=== PATIENT | female | born 1930 | race Caucasian/White ===

== ENCOUNTER 2017-12-27 21:23 | Inpatient (IN) | payer OTHER ==
[~2017-12-27] VITALS: Ht 152.4 cm; Wt 45.4 kg
[2017-12-27] MEDS ORDERED: NAMENDA10 MG (21:36)
[2017-12-27] MEDS ORDERED: PLAVIX75 MG (21:36)
[2017-12-27] MEDS ORDERED: SIMVASTATIN10 MG (21:37)
[2017-12-27] MEDS ORDERED: SYNTHROID88 MCG (21:37)
[2017-12-27] MEDS ORDERED: TRAZODONE HCL50 MG (21:38)
[2017-12-27] MEDS ORDERED: FORTAMET500 MG (21:38)
[2018-01-06] MEDS ORDERED: HEARTBURN PREVE20 MG PO (17:41)
[2018-01-06] MEDS ORDERED: LEVOTHYROXINE100 MCG PO (17:41)
[2018-01-06] MEDS ORDERED: SIMVASTATIN20 MG PO (17:41)
[2018-01-06] MEDS ORDERED: PLAVIX75 MG PO (17:41)
[2018-01-06] MEDS ORDERED: NAMENDA10 MG PO (17:41)
[2018-01-06] MEDS ORDERED: NeurRONTin 100mg cap PO (17:41)
[2018-01-06] MEDS ORDERED: CYMBALTA30 MG PO (17:41)
== END 2018-01-06 17:53 | disposition home health service (06) | DRG 389 ==
LOC: ER 21:23 → MEDJ 12-28 13:17 → SEC-K 12-28 13:17 → MEDJ 12-28 15:00
PROC: BW25Y0Z Computerized Tomography (CT Scan) of Chest, Abdomen and Pelvis using Other Contrast, Unenhanced and Enhanced (ICD-10-PCS; principal; 2017-12-28)
PROC: CP1Z1ZZ Planar Nuclear Medicine Imaging of Musculoskeletal System, All using Technetium 99m (Tc-99m) (ICD-10-PCS; 2017-12-29)
PROC: BR29ZZZ Computerized Tomography (CT Scan) of Lumbar Spine (ICD-10-PCS; 2018-01-01)
DX: K56.690 Other partial intestinal obstruction (principal); S32.018A Other fracture of first lumbar vertebra, initial encounter for closed fracture; E11.9 Type 2 diabetes mellitus without complications; E03.8 Other specified hypothyroidism; Z86.73 Personal history of transient ischemic attack (TIA), and cerebral infarction without residual deficits; M16.4 Bilateral post-traumatic osteoarthritis of hip; G72.89 Other specified myopathies; G30.8 Other Alzheimer's disease; F02.80 Dementia in other diseases classified elsewhere, unspecified severity, without behavioral disturbance, psychotic disturbance, mood disturbance, and anxiety; M54.5 Low back pain; Z74.01 Bed confinement status; W18.39XA Other fall on same level, initial encounter; Y93.89 Activity, other specified; Y92.89 Other specified places as the place of occurrence of the external cause; Y99.8 Other external cause status

== ENCOUNTER 2018-03-30 12:42 | Emergency (ER) | payer OTHER ==
[~2018-03-30] VITALS: Ht 152.4 cm; Wt 40.8 kg
[~2018-03-30 12:42] MED LIST: CYMBALTA30 MG PO; FORTAMET500 MG; HEARTBURN PREVE20 MG PO; LEVOTHYROXINE100 MCG PO; NAMENDA10 MG; NAMENDA10 MG PO; NeurRONTin 100mg cap PO; PLAVIX75 MG; PLAVIX75 MG PO; SIMVASTATIN10 MG; SIMVASTATIN20 MG PO; SYNTHROID88 MCG; TRAZODONE HCL50 MG
[2018-03-30] MEDS ORDERED: BACTRIM DS TAB1 EACH PO (18:40)
[2018-03-30] MEDS ORDERED: URIN D.S. TABL1 EACH PO (18:40)
== END 2018-03-30 20:56 | disposition home or self-care (01) ==
LOC: ER 12:42
DX: N39.0 Urinary tract infection, site not specified (principal); B96.4 Proteus (mirabilis) (morganii) as the cause of diseases classified elsewhere

== ENCOUNTER 2018-05-15 21:36 | Inpatient (IN) | payer OTHER ==
[~2018-05-15] VITALS: Ht 149.9 cm; Wt 40.8 kg
[~2018-05-15 21:36] MED LIST changes: +BACTRIM DS TAB1 EACH PO; +URIN D.S. TABL1 EACH PO
[2018-05-15] MEDS ORDERED: SIMVASTATIN10 MG PO (21:42)
[2018-05-15] MEDS ORDERED: FORTAMET500 MG PO (21:42)
[2018-05-15] MEDS ORDERED: ELIQUIS2.5 MG PO (21:42)
[2018-05-15] MEDS ORDERED: TRAZODONE HCL50 MG PO (21:43)
[2018-05-16] MEDS ORDERED: GABAPENTIN100 MG PO (18:57)
== END 2018-05-24 22:25 | disposition home or self-care (01) | DRG 872 ==
LOC: ER 21:36 → MEDI 05-16 12:47 → SEC-K 05-16 12:47 → MEDI 05-16 13:37
PROC: BW24ZZZ Computerized Tomography (CT Scan) of Chest and Abdomen (ICD-10-PCS; principal; 2018-05-17)
PROC: 30233N1 Transfusion of Nonautologous Red Blood Cells into Peripheral Vein, Percutaneous Approach (ICD-10-PCS; 2018-05-18)
PROC: 4A033R1 Measurement of Arterial Saturation, Peripheral, Percutaneous Approach (ICD-10-PCS; 2018-05-18)
PROC: 02HV33Z Insertion of Infusion Device into Superior Vena Cava, Percutaneous Approach (ICD-10-PCS; 2018-05-19)
DX: A41.9 Sepsis, unspecified organism (principal); N39.0 Urinary tract infection, site not specified; K56.3 Gallstone ileus; K92.1 Melena; B96.1 Klebsiella pneumoniae [K. pneumoniae] as the cause of diseases classified elsewhere; E11.9 Type 2 diabetes mellitus without complications; Z79.4 Long term (current) use of insulin; E03.8 Other specified hypothyroidism; E78.49 Other hyperlipidemia; G30.8 Other Alzheimer's disease; F02.80 Dementia in other diseases classified elsewhere, unspecified severity, without behavioral disturbance, psychotic disturbance, mood disturbance, and anxiety; R33.8 Other retention of urine